=== PATIENT | female | born 1975 | race Hispanic/Latino ===

== ENCOUNTER 2018-06-14 14:50 | Emergency (ER) | payer SELFPAY ==
[2018-06-14] MEDS ORDERED: DEXAMETHASONE 10 MG/ML VIAL ONE (15:50)
[2018-06-14] MEDS ORDERED: DIPHENHYDRAMINE 50 MG/ML VIAL ONE (15:51)
[2018-06-14] MEDS ORDERED: MECLIZINE HCL 12.5 MG TAB ONE (15:51)
[2018-06-14] MEDS ORDERED: ONDANSETRON 4 MG/2 ML VIAL ONE (15:51)
[2018-06-14] MEDS ORDERED: NA CHLORIDE 0.9% 1,000 ML ONE (15:51)
--- NOTE | 2018-06-14 16:00 | RAD REPORT ---
EXAM DESCRIPTION: CT - Head Brain Wo Cont - 06/14/2018 3:53 pm CLINICAL HISTORY: Left-sided headache COMPARISON: None. TECHNIQUE: Axial 5 mm thick images of the head were obtained without IV contrast. All CT scans are performed using dose optimization technique as appropriate and may include automated exposure control or mA/KV adjustment according to patient size. FINDINGS: No intracranial hemorrhage, mass, edema or shift of mid-line structures. No acute infarcti on changes seen. No abnormal extra-axial fluid collections. Ventricles are normal. Mastoid air cells and visualized portions of the paranasal sinuses are clear. No acute bony findings. IMPRESSION: Negative non-contrast CT head examination.
[2018-06-14 16:02] LABS: Absolute Lymphocytes (CBC) 4.1 K/uL (0.7-4.9); Absolute Neutrophil 4.4 K/uL (1.8-8.0); Basophils % 0.6 % (0-1.3); Eosinophils % 2.3 % (0-4.4); Hematocrit 41.5 % (36.0-45.0); MCH 30.6 pg (27.0-35.0); MPV 8.9 fL (7.6-11.3); RBC Red Blood Cell Count 4.61 M/uL (3.86-4.86)
[2018-06-14 16:09] LABS: BUN Blood Urea Nitrogen 9 mg/dL (7-18); Bicarbonate 23 mmol/L (21-32); Glucose Level 87 mg/dL (74-106); Potassium 3.8 mmol/L (3.5-5.1); Sodium Level 139 mmol/L (136-145)
--- NOTE | 2018-06-14 16:32 | ER ---
Nurse's Notes [facility] Name: Juan José Saini Age: 42 yrs Sex: Female : 1975 Arrival Date: 06/14/2018 Time: 14:52 Bed 5 Private MD: None, None Diagnosis: Headache Presentation: 06/14 14:58 Presenting complaint: Patient states: Monday, i started a bad headache, L side, and its hj gotten worse, reports nausea and dizziness; been taking Excedrin but its not helping; reports nausea;. Transition of care: patient was not received from another setting of care. Onset of symptoms was June 14, 2018. Risk Assessment: Do you want to hurt yourself or someone else? Patient reports no desire to harm self or others. Initial Sepsis Screen: Does the patient meet any 2 criteria? No. Patient's initial sepsis screen is negative. Does the patient have a suspected source of infection? No. Patient's initial sepsis screen is negative. Care prior to arrival: None. 14:58 Method Of Arrival: Ambulatory 14:58 Acuity: FRAN 3 hj Triage Assessment: 15:00 Headache History: The patient has had previous headaches and this one is more severe hj than previous episodes. General: Appears in no apparent distress. uncomfortable, Behavior is calm, cooperative, appropriate for age. Pain: Complains of pain in head Pain currently is 10 out of 10 on a pain scale. Pain began 2-3 days ago. Also complains of nausea. 15:01 Neuro: Level of Consciousness is awake, alert, obeys commands, Oriented to person, hj place, time, situation, Appropriate for age. 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 - Social history:: Smoking status: Patient/guardian denies using tobacco, Patient/guardian denies using alcohol. - Ebola Screening: : Patient negative for fever greater than or equal to 101.5 degrees Fahrenheit, and additional compatible Ebola Virus Disease symptoms Patient denies exposure to infectious person Patient denies travel to an Ebola-affected area in the 21 days before illness onset. Screenin:00 Abuse screen: Denies threats or abuse. Denies injuries from another. Nutritional hj screening: No deficits noted. Tuberculosis screening: No symptoms or risk factors identified. Fall Risk None identified. Assessment: 15:30 General: Appears uncomfortable, Behavior is cooperative, anxious. Pain: Complains of ae1 pain in head, back of head and face. Neuro: Level of Consciousness is awake, alert, obeys commands, Oriented to person, place, time, situation. Neuro: Reports dizziness, photophobia. Cardiovascular: Heart tones S1 S2 present. Respiratory: Airway is patent Respiratory effort is even, unlabored, Respiratory pattern is regular, Breath sounds are clear bilaterally. GI: Abdomen is round Bowel sounds present X 4 quads. Abd is soft and non tender X 4 quads. Reports nausea. GI: Patient currently denies diarrhea, vomiting. : Urine is cloudy. EENT: No signs and/or symptoms were reported regarding the EENT system. Derm: Skin is pale. Musculoskeletal: Reports Generalized weakness. 16:10 Reassessment: Confirmed with pharmacy via telephone that dexamethasone cannot be ae1 administered with benadryl as they are incompatible per Maury in pharmacy. Provider notified, new order received to administer dexamethasone separately. 16:21 Reassessment: Patient appears in no apparent distress at this time. Patient and/or ae1 family updated on plan of care and expected duration. Pain level reassessed. resting with eyes closed, respirations even and unlabored. Easily awakened to voice. 16:44 Reassessment: Patient appears in no apparent distress at this time. IV fluids still ae1 infusing. Patient awaiting friend to transport her home. Patient states feeling better. Patient states symptoms have improved. Vital Signs: 15:01 BP 115 / 56; Pulse 73; Resp 18; Temp 98.6(TE); Pulse Ox 99% on R/A; Weight 72.57 kg; hj Height 5 ft. 1 in. (154.94 cm); Pain 10/10; 15:25 BP 138 / 73; Pulse 68; Resp 16; Pulse Ox 99% on R/A; mt 15:50 BP 111 / 48 Supine; Pulse 70; mt 15:50 BP 121 / 79 Sitting; Pulse 90; mt 15:50 BP 99 / 75 Standing; Pulse 74; mt 16:32 BP 111 / 75; Pulse 70; Resp 16; Pulse Ox 100% on R/A; ae1 15:01 Body Mass Index 30.23 (72.57 kg, 154.94 cm) hj ED Course: 14:52 Patient arrived in ED. mr 14:53 None, None is Private Physician. mr 15:00 Triage completed. hj 15:01 Arm band placed on left wrist. hj 15:01 Patient has correct armband on for positive identification. Placed in gown. Bed in low hj position. Call light in reach. Side rails up X 1. Adult w/ patient. 15:03 Juan José Diaz, GERRY is Primary Nurse. ae1 15:30 Steven Beltran PA is PHCP. cp 15:30 Lamonte Juan MD is Attending Physician. cp 15:30 Inserted saline lock: 20 gauge in right antecubital area, using aseptic technique. ae1 Blood collected. 15:51 CT completed. Patient tolerated procedure well. Patient moved to CT via wheelchair. Patient moved back from CT. 15:53 CT Head Brain wo Cont In Process Unspecified. EDMS 17:14 No provider procedures requiring assistance completed. IV discontinued, intact, ae1 bleeding controlled, No redness/swelling at site. Pressure dressing applied. Administered Medications: 15:58 Drug: Zofran 4 mg Route: IVP; Site: right antecubital; ae1 17:13 Follow up: Response: Nausea is decreased ae1 15:58 Drug: NS 0.9% 1000 ml Route: IV; Rate: 1000 ml; Site: right antecubital; ae1 17:14 Follow up: IV Status: Completed infusion ae1 15:58 Drug: Benadryl 25 mg Route: IVP; Site: right antecubital; ae1 17:12 Follow up: Response: Pain is decreased ae1 16:02 Drug: Meclizine 25 mg Route: PO; ae1 17:13 Follow up: Response: Other; dizziness decreased ae1 16:03 Drug: Dexamethasone 10 mg Route: IVP; Site: right antecubital; ae1 17:13 Follow up: Response: No adverse reaction ae1 Intake: Outcome: 16:31 Discharge ordered by . cp 17:14 Discharged to home ambulatory, Patient states her ride is waiting for her in the lobby. ae1 Patient refused wheelchair to lobby. 17:14 Condition: stable 17:14 Discharge instructions given to patient, Instructed on discharge instructions, follow up and referral plans. medication usage, Demonstrated understanding of instructions, Prescriptions given X 2. 17:15 Patient left the ED. ae1 Signatures: Dispatcher [employer] EDKY MixRomelia mr Leal SonaParish Addison RN RN hj Steven Beltran PA PA cp Elliott, Andrea, RN RN ae1 Oneida Dawson ri Corrections: (The following items were deleted from the chart) 15:04 15:01 Pulse 73bpm; Resp 18bpm; Pulse Ox 99% RA; Temp 98.6F Temporal; 72.57 kg; Height 5 hj ft. 1 in.; BMI: 30.2; Pain 10/10; hj
--- NOTE | 2018-06-14 16:32 | EDPHYS ---
Physician Documentation [facility] Name: Juan José Saini Age: 42 yrs Sex: Female : 1975 Arrival Date: 06/14/2018 Time: 14:52 Bed 5 Private MD: None, None ED Physician Lamonte Juan HPI: 06/14 15:35 This 42 yrs old Female presents to ER via Ambulatory with complaints of cp Headache, Nausea, Dizziness. 15:35 The patient complains of pain to the back of head and right side of head. The patient cp describes the headache as aching, constant. Onset: The symptoms/episode began/occurred 3 day(s) ago, and became worse today. Associated signs and symptoms: Pertinent positives: nausea, Photophobia. Headache History: The patient has had previous headaches and this one is more severe than previous episodes. 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 - Social history:: Smoking status: Patient/guardian denies using tobacco, Patient/guardian denies using alcohol. - Ebola Screening: : Patient negative for fever greater than or equal to 101.5 degrees Fahrenheit, and additional compatible Ebola Virus Disease symptoms Patient denies exposure to infectious person Patient denies travel to an Ebola-affected area in the 21 days before illness onset. ROS: 15:42 Constitutional: Negative for body aches, chills, fever, poor PO intake. cp 15:42 ENT: Negative for injury, pain, and discharge. cp 15:42 Eyes: Positive for photophobia, Negative for discharge, redness, vision loss. 15:42 Cardiovascular: Negative for chest pain, edema, palpitations. 15:42 Respiratory: Negative for cough, shortness of breath, wheezing. 15:42 Abdomen/GI: Positive for nausea, Negative for abdominal pain, vomiting, diarrhea, constipation. 15:42 Skin: Negative for cellulitis, rash. 15:42 Neuro: Positive for dizziness, headache, Negative for altered mental status, weakness. 15:42 All other systems are negative. Exam: 15:48 Constitutional: The patient appears in no acute distress, alert, awake, non-toxic, well cp developed, well nourished. 15:48 Head/Face: Normocephalic, atraumatic. cp 15:48 Eyes: Periorbital structures: appear normal, Pupils: equal, round, and reactive to light and accomodation, Extraocular movements: intact throughout, Conjunctiva: normal, no exudate, no injection, Sclera: no appreciated abnormality, Lids and lashes: appear normal, bilaterally. 15:48 ENT: External ear(s): are unremarkable, Ear canal(s): are normal, clear, TM's: dullness, bilaterally, Nose: is normal, Mouth: Lips: moist, Oral mucosa: pink and intact, moist, Posterior pharynx: is normal, airway is patent, no erythema, no exudate, Voice: is normal. 15:48 Neck: ROM/movement: is normal, is supple, without pain, no range of motions limitations, no meningismus, no nuchal rigidity, Lymph nodes: no appreciated lymphadenopathy. 15:48 Chest/axilla: Inspection: normal, Palpation: is normal, no crepitus, no tenderness. 15:48 Cardiovascular: Rate: normal, Rhythm: regular. 15:48 Respiratory: the patient does not display signs of respiratory distress, Respirations: normal, no use of accessory muscles, no retractions, no splinting, no tachypnea, labored breathing, is not present, Breath sounds: are clear throughout, no decreased breath sounds, no stridor, no wheezing. 15:48 Abdomen/GI: Inspection: abdomen appears normal, Bowel sounds: active, all quadrants, Palpation: abdomen is soft and non-tender, in all quadrants, rebound tenderness, is not appreciated, involuntary guarding, is not appreciated. 15:48 Back: pain, is absent, ROM is normal. 15:48 Skin: cellulitis, is not appreciated, no rash present. 15:48 Neuro: Orientation: to person, place \T\ time. Mentation: lucid, able to follow commands, Cerebellar function: is grossly normal, Motor: moves all fours, strength is normal, Sensation: no obvious gross deficits. Vital Signs: 15:01 BP 115 / 56; Pulse 73; Resp 18; Temp 98.6(TE); Pulse Ox 99% on R/A; Weight 72.57 kg; hj Height 5 ft. 1 in. (154.94 cm); Pain 10/10; 15:25 BP 138 / 73; Pulse 68; Resp 16; Pulse Ox 99% on R/A; mt 15:50 BP 111 / 48 Supine; Pulse 70; mt 15:50 BP 121 / 79 Sitting; Pulse 90; mt 15:50 BP 99 / 75 Standing; Pulse 74; mt 16:32 BP 111 / 75; Pulse 70; Resp 16; Pulse Ox 100% on R/A; ae1 15:01 Body Mass Index 30.23 (72.57 kg, 154.94 cm) hj MDM: 15:30 Patient medically screened. cp 16:28 Data reviewed: vital signs, nurses notes, lab test result(s), radiologic studies, CT cp scan. ED course: VSS. Patient reports headache improved. Will discharge to home for continued monitoring. Patient instructed to return to ED if pain or symptoms worsen. 06/14 15:31 Order name: Urine Dipstick--Ancillary (enter results); Complete Time: 16:51 06/14 16:52 Interpretation: Normal except: UBLD TRACE; UPH 8.5; UESTR 3+. 06/14 15:31 Order name: Urine --Ancillary (enter results); Complete Time: 16:51 06/14 15:40 Order name: CBC with Diff; Complete Time: 16:27 06/14 16:27 Interpretation: Normal except: MCV 90.0. 06/14 15:40 Order name: CT Head Brain wo Cont; Complete Time: 16:04 06/14 16:04 Interpretation: Report reviewed. 06/14 15:40 Order name: BMP; Complete Time: 16:27 06/14 16:27 Interpretation: Normal except: CL 109. 06/14 15:30 Order name: Orthostatics; Complete Time: 15:49 06/14 15:40 Order name: Misc. Order: place IV medications in IV fluids; Complete Time: 16:05 cp Administered Medications: 15:58 Drug: Zofran 4 mg Route: IVP; Site: right antecubital; ae1 17:13 Follow up: Response: Nausea is decreased ae1 15:58 Drug: NS 0.9% 1000 ml Route: IV; Rate: 1000 ml; Site: right antecubital; ae1 17:14 Follow up: IV Status: Completed infusion ae1 15:58 Drug: Benadryl 25 mg Route: IVP; Site: right antecubital; ae1 17:12 Follow up: Response: Pain is decreased ae1 16:02 Drug: Meclizine 25 mg Route: PO; ae1 17:13 Follow up: Response: Other; dizziness decreased ae1 16:03 Drug: Dexamethasone 10 mg Route: IVP; Site: right antecubital; ae1 17:13 Follow up: Response: No adverse reaction ae1 Disposition: 17:19 Co-signature as Attending Physician, Lamonte Juan MD I agree with the assessment and kdr plan of care. Disposition: 06/14/18 16:31 Discharged to Home. Impression: Headache. - Condition is Stable. - Discharge Instructions: Migraine Headache. - Prescriptions for Fiorinal 50- 325-40 mg Oral Capsule - take 1 capsule by ORAL route every 4 hours As needed - not to exceed 6 capsules per day; 20 capsule. Zofran 4 mg Oral Tablet - take 1 tablet by ORAL route every 12 hours As needed; 20 tablet. - Medication Reconciliation Form, Thank You Letter, Antibiotic Education, Prescription Opioid Use form. - Follow up: Private Physician; When: 1 - 2 days; Reason: Recheck today's complaints. - Problem is new. - Symptoms have improved. Signatures: Dispatcher [employer] EDLamonte Bear MD MD [facility] [place] RN RN Steven Hernandez PA PA cp uJan José Diaz RN RN ae1 Corrections: (The following items were deleted from the chart) 17:15 16:31 06/14/2018 16:31 Discharged to Home. Impression: Headache. Condition is Stable. ae1 Forms are Medication Reconciliation Form, Thank You Letter, Antibiotic Education, Prescription Opioid Use. Follow up: Private Physician; When: 1 - 2 days; Reason: Recheck today's complaints. Problem is new. Symptoms have improved. cp
[2018-06-14 16:42] LABS: Urine Blood TRACE (NEG); Urine Glucose NEGATIVE (NEG); Urine Protein TRACE (NEG); Urine Specific Gravity 1.015 (1.005-1.030); Urine pH 8.5 (5.0-7.0)
[2018-06-14 17:22] VITALS: TEMP 98.6
[2018-06-14 17:26] VITALS: BP 111/75; O2SAT 100
== END 2018-06-14 17:15 | disposition home or self-care (01) ==
LOC: ER 14:50
DX: R51 Headache (principal); R11.0 Nausea; R42 Dizziness and giddiness
CPT/HCPCS: 36415; 70450; 80048; 81003; 81025; 85025; 96361; 96374; 96375; 99284; J1100; J2405; J7030